=== PATIENT | male | born 1965 | race Caucasian/White ===

== ENCOUNTER 2017-07-14 05:26 | Emergency (ER) | payer BC ==
[~2017-07-14] VITALS: Ht 175.3 cm; Wt 100.0 kg
[2017-07-14 05:31] VITALS: BP 175/111; PULSE 86; RESP 18; TEMP 97.3; O2SAT 96
[2017-07-14] MEDS ORDERED: SODIUM CHLOR 0.9% 1000 ML INJ 1,000 ML IV SCH (05:47)
[2017-07-14] MEDS ORDERED: methylPREDNISolone SOD SUCC 125 MG/2 ML VIAL IV PUSH ONE (06:00)
[2017-07-14] MEDS ORDERED: FAMOTIDINE 20 MG/2 ML VIAL IV PUSH ONE (06:00)
[2017-07-14] MEDS ORDERED: SODIUM CHLORIDE 0.9% FLUSH 10 ML FLUSH IV FLUSH PRN (06:00)
[2017-07-14] MEDS ORDERED: diphenhydrAMINE HCL 50 MG/ML VIAL IVP ONE (06:00)
--- NOTE | 2017-07-14 06:03 | PD ---
HPI Chief Complaint: Skin Problem Time Seen by Provider: 05:47 Travel History International Travel<30 days: No Contact w/Intl Traveler<30days: No Traveled to known affect area: No History of Present Illness HPI Patient is a 51-year-old male presenting to the emergency depart for evaluation of hives. Patient states it started 3 months ago, it occurs at night. He denies any shortness of breath, chest pain, wheezing. Patient denies any new soaps, lotions, detergents. He states he went to his primary doctor who stated he could not help him and asked him to go to the emergency department if symptoms worsen. Symptom onset was gradual, symptoms are moderate to severe nature. Patient reports itching and irritation. He denies any new foods. sleeps in the same bed and she has no skin issues. Patient reports a history of hypertension, seasonal allergies, GERD. PFSH Past Medical History Cardiac Catheterization: Yes Hypertension: Yes Social History Alcohol Use: Yes Tobacco Use: No Substance Use: No Allergies-Medications (Allergen,Severity, Reaction): Coded Allergies: No Known Allergies (Unverified , 07/14/17) Reported Meds & Prescriptions Reported Meds & Active Scripts Active Active Prescriptions or Reported Medications Unobtainable Review of Systems Except as stated in HPI: all other systems reviewed are Neg Skin: Positive Rash, Positive Itching, Positive Hives Physical Exam Narrative GENERAL: Well-developed, well-nourished, alert male. Presenting in no acute distress. SKIN: Warm and dry. Hives to head, neck, back, chest, legs, arms. HEAD: Atraumatic. Normocephalic. EYES: Pupils equal and round. No scleral icterus. No injection or drainage. ENT: No nasal bleeding or discharge. Mucous membranes pink and moist. NECK: Trachea midline. No JVD. CARDIOVASCULAR: Regular rate and rhythm. RESPIRATORY: No accessory muscle use. Clear to auscultation. Breath sounds equal bilaterally. No wheezes, rhonchi, rales noted. GASTROINTESTINAL: Abdomen soft, non-tender, nondistended. Hepatic and splenic margins not palpable. MUSCULOSKELETAL: Extremities without clubbing, cyanosis, or edema. No obvious deformities. NEUROLOGICAL: Awake and alert. No obvious cranial nerve deficits. Motor grossly within normal limits. Five out of 5 muscle strength in the arms and legs. Normal speech. PSYCHIATRIC: Appropriate mood and affect; insight and judgment normal. Data Data Last Documented VS Vital Signs Date Time Temp Pulse Resp B/P (MAP) Pulse Ox O2 Delivery O2 Flow Rate FiO2 07/14/17 05:31 97.3 86 18 175/111 (132) 96 Orders Orders Iv Access Insert/Monitor (07/14/17 05:47) Diphenhydramine Inj (Benadryl Inj) (07/14/17 06:00) Methylprednisolone So Succ Inj (Solumedr (07/14/17 06:00) Famotidine Inj (Pepcid Inj) (07/14/17 06:00) Sodium Chlor 0.9% 1000 Ml Inj (Ns 1000 M (07/14/17 05:47) Sodium Chloride 0.9% Flush (Ns Flush) (07/14/17 06:00) MDM Medical Decision Making Medical Screen Exam Complete: Yes Emergency Medical Condition: Yes Interpretation(s) Vital Signs Date Time Temp Pulse Resp B/P (MAP) Pulse Ox O2 Delivery O2 Flow Rate FiO2 07/14/17 05:31 97.3 86 18 175/111 (132) 96 Differential Diagnosis Contact dermatitis versus allergic reaction versus atopic dermatitis versus hives versus other Narrative Course Patient is a 51-year-old male presenting to emergency department for evaluation of hives. Patient's vital signs are stable, lungs are clear to auscultation, heart rate is regular. Patient will be given Solu-Medrol, famotidine, Benadryl now as well as a liter of IV fluids. Patient reports that his itching has improved. Hives appear to be fading. Patient's vital signs are stable. Symptoms have been chronic in nature and there has been no respiratory compromise over the last 3 months since the onset of his symptoms. Patient will be discharged home with a prescription for prednisone and ranitidine. He is advised to return to emergency department immediately for any new or worsening symptoms. He was advised to follow-up with his primary doctor or electronic funds transfer coordinator. Patient verbalized understanding of discharge instructions. Patient stable for discharge. Diagnosis Primary Impression: Hives of unknown origin Referrals: [facility] Primary Care Physician Patient Instructions: Dermatitis (ED), General Instructions, Urticaria (GEN) Additional Instructions: Take medications as directed Follow-up with your primary doctor Follow-up with a electronic funds transfer coordinator Avoid use of soaps or detergents with perfumes and dyes Take [id number] Zyrtec or similar agent daily as directed, medication may take up to 2 weeks of continued consistent use for full effectiveness Return to emergency department for any new worsening symptoms Med/Other Pt SpecificInfo: Prescription(s) given Scripts Ranitidine (Ranitidine) 150 Mg Tab 150 MG PO BID for Heartburn Management, #60 TAB 0 Refills Prov: Giulia Solares 07/14/17 Prednisone (Prednisone) 50 Mg Tab 50 MG PO DAILY for 5 Days, #5 TAB 0 Refills Prov: Giulia Solares 07/14/17 Disposition: 01 DISCHARGE HOME Condition: Stable Giulia Solares July 14, 2017 06:03
[2017-07-14] MEDS ORDERED: RANI150T PO (06:54)
[2017-07-14] MEDS ORDERED: PRED50 PO (06:54)
== END 2017-07-14 07:12 | disposition home or self-care (01) ==
LOC: NEPD 05:26
DX: L50.9 Urticaria, unspecified (principal); L30.9 Dermatitis, unspecified; L29.9 Pruritus, unspecified; J30.2 Other seasonal allergic rhinitis; I10 Essential (primary) hypertension; K21.9 Gastro-esophageal reflux disease without esophagitis
CPT/HCPCS: 96374; 96375; 99284; J1200; J2930; J7030